=== PATIENT | female | born 1995 | race Caucasian/White ===

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

== ENCOUNTER 2019-08-03 21:53 | Emergency (ER) | payer OTHER ==
[~2019-08-03] VITALS: Ht 154.9 cm; Wt 55.3 kg
--- NOTE | 2019-08-03 22:15 | NUR ---
PT SENT TO L&D BED #2. S/W MARIAM. Addendum: 08/03/19 at 2216 by RENETTA PT S/O ABD CRAMPING AND LOW BACK PAIN X1700.
[2019-08-03] MEDS ORDERED: PREN-371 PO (23:24)
[2019-08-03] MEDS ORDERED: FERR-252 PO (23:24)
[2019-08-03 23:29] VITALS: BP 111/77
--- NOTE | 2019-08-03 23:50 | NUR ---
BIB WHEELCHAIR BY L&D STAFF TO ER BED 4
[2019-08-03 23:52] VITALS: BP 114/78
--- NOTE | 2019-08-04 00:11 | NUR ---
SHE WAS BROUGHT TO L & D WITH C/O LOWER ABD AND BACK PAIN, NO VAG BLEEDING SHE WAS SEEN AND EXAMINED IN L & D AND WAS CLEARED, BUT SOB THAT STARTED TODAY WHILE LYING DOWN, DENIES SOB AT THIS TIME, PUT ON BED # 4 VIA WHEELCHAIR.SHES 38 WEEKS , LMP NOVEMBER 22 STATES LOWER BL PELVIC PAIN AND MID LOWER BACK PAIN INTERMITTENT X TODAY. STATES N/V/D TODAY [id number] Addendum: 08/04/19 at 0018 by TITO DENIES PMH
--- NOTE | 2019-08-04 00:15 | NUR ---
RECEIVED REPORT FROM KERI PIERCE, BACK FROM BREAK
--- NOTE | 2019-08-04 00:27 | NUR ---
Carlota wilkins in [facility] - 08/04/19 at 0030 by MEDJJ PATIENT RESTING WITH EYES CLOSED, BREATHING EVEN AND UNLABORED
--- NOTE | 2019-08-04 00:27 | NUR ---
PATIENT ALERT AND ORIENTED, BREATHING EVEN AND UNLABORED
[2019-08-04 00:47] VITALS: BP 111/68
--- NOTE | 2019-08-04 00:47 | NUR ---
Patient discharged with v/s stable. Written and verbal after care instructions ABOUT SHORTNESS OF BREATHE given and explained. Patient verbalized understanding. Ambulatory with steady gait. All questions addressed prior to discharge. Advised to follow up with PMD AND ENTRY LEVEL STAFF ACCOUNTANT DOCTOR
== END 2019-08-04 00:47 | disposition home or self-care (01) ==
LOC: MED 21:53 → UNDOADMIN 22:15 → MLD 22:15 → MED 08-04 00:47
DX: O26.892 Other specified pregnancy related conditions, second trimester (principal); R06.02 Shortness of breath; R10.30 Lower abdominal pain, unspecified; M54.9 Dorsalgia, unspecified; Z3A.36 36 weeks gestation of pregnancy; Z79.899 Other long term (current) drug therapy
CPT/HCPCS: 81000; 99283

== ENCOUNTER 2019-08-08 03:00 | Inpatient (IN) | payer OTHER ==
[~2019-08-08] VITALS: Ht 152.4 cm; Wt 55.3 kg
[~2019-08-08 03:00] MED LIST changes: -BRE5 PO; +FERR-252 PO; -FERR325E14 PO; +PREN-371 PO; -PRENATAL; -[UNRECOGNIZED DRUG - OTHER]
[2019-08-08] MEDS ORDERED: LACTATED RINGERS 1,000 ML IV SCH (04:05)
[2019-08-08] MEDS ORDERED: AMPICILLIN 2,000 MG in NACL 0.9% 100 ML IV SCH (04:05)
[2019-08-08] MEDS ORDERED: AMPICILLIN 2,000 MG VIAL ONE (04:29)
[2019-08-08 04:41] LABS: BASOPHILS % (AUTO) 0.3 % (0.0-2.0); EOSINOPHILS % (AUTO) 0.6 % (0.0-4.0); HEMATOCRIT 30.4 % (36-48); HEMOGLOBIN 10.1 g/dL (12.0-16.0); LYMPHOCYTES # (AUTO) 2.3 K/uL (2.5-16.5); LYMPHOCYTES % (AUTO) 28.8 % (20.5-51.1); MEAN CORPUSCULAR HEMOGLOBIN 31 pg (27-31); MEAN CORPUSCULAR HGB CONC 33 g/dL (33-37); MEAN CORPUSCULAR VOLUME 94.8 fL (80-94); MONOCYTES # (AUTO) 0.7 K/uL (0.8-1.0); MONOCYTES % (AUTO) 8.4 % (1.7-9.3); NEUTROPHILS # (AUTO) 4.9 K/uL (1.8-7.7); NEUTROPHILS % (AUTO) 61.9 % (42.2-75.2); PLATELET COUNT (AUTO) 267 K/uL (140-450); RED BLOOD CELL COUNT(AUTO) 3.21 MIL/uL (4.20-5.40); RED CELL DISTRIBUTION WIDTH 14.3 % (11.6-13.7); WHITE BLOOD COUNT (AUTO) 7.9 K/uL (4.8-10.8)
[2019-08-08 04:51] LABS: APPEARANCE,URINE SL CLOUDY (CLEAR); BILIRUBIN,URINE NEGATIVE (NEGATIVE); BLOOD, URINE 3+ (NEGATIVE); COLOR,URINE YELLOW (YELLOW); LEUKOCYTE ESTERASE ,URINE 1+ (NEGATIVE); NITRITE, URINE NEGATIVE (NEGATIVE); PH,URINE 7.5 (5.0-9.0); UGLUCOSE NEGATIVE (NEGATIVE)
[2019-08-08 04:57] LABS: BARBITURATE, URINE NEG. ng/ml (NEG <=200); BENZODIAZEPINE, URINE NEG. ng/mL (NEG <=200); CANNABINOID, URINE NEG. ng/mL (NEG <=50); COCAINE, URINE NEG. ng/mL (NEG <=300); OPIATE, URINE NEG. ng/mL (NEG <=2000); PHENCYCLIDINE SCREEN,URINE NEG. ng/mL (NEG <=25)
[2019-08-08 05:26] LABS: RBC,URINE TOO NUMEROUS TO COUN /HPF (0-5); WBC,URINE TOO MANY TO COUNT /HPF (0-5)
[2019-08-08] MEDS ORDERED: OXYTOCIN 20 UNITS in LACTATED RINGERS 1,000 ML IV SCH (06:35)
[2019-08-08] MEDS ORDERED: OXYTOCIN 20 UNITS/LR PREMIX 1,000 ML IV ONE (06:43)
[2019-08-08 07:20] LABS: ANION GAP 12.2 (8-16); CARBON DIOXIDE 23.6 mmol/L (21-32); CREATININE 0.4 mg/dL (0.6-1.3); POTASSIUM 3.8 mmol/L (3.5-5.1)
[2019-08-08 07:26] LABS: ALBUMIN 2.6 g/dL (3.4-5.0); TOTAL BILIRUBIN 0.3 mg/dL (0.0-1.0)
[2019-08-08] MEDS ORDERED: PROMETHAZINE 25 MG/ML VIAL IVP PRN (07:35)
[2019-08-08] MEDS ORDERED: METHYLERGONOVINE 0.2 MG/ML AMP IM PRN ×2 (07:35→19:45)
[2019-08-08] MEDS ORDERED: CARBOPROST 250 MCG/ML AMP IM PRN (07:35)
[2019-08-08] MEDS ORDERED: NALBUPHINE 10 MG/ML AMP ONE (07:36)
[2019-08-08] MEDS: NALBUPHINE 10 MG/ML AMP IVP PRN ×2 (07:40→10:08)
[2019-08-08] MEDS ORDERED: AMPICILLIN 1,000 MG in NACL 0.9% 50 ML IV SCH (08:00)
--- NOTE | 2019-08-08 08:15 | NUR ---
PATIENT HAS BEEN SCREENED AND CATEGORIZED LOW NUTRITION RISK. PATIENT WILL BE SEEN WITHIN 7 DAYS OF ADMISSION. 08/14/[address]
[2019-08-08] MEDS ORDERED: AMPICILLIN 1,000 MG VIAL ONE (09:37)
[2019-08-08] MEDS ORDERED: EPIDURAL KEYS MC ONE (10:27)
[2019-08-08] MEDS ORDERED: ROPIVACAINE 0.2%/NS PREMIX 100 ML EPI ONE (11:09)
[2019-08-08] MEDS ORDERED: ROPIVACAINE 0.2%/NS PREMIX 100 ML EPI SCH (12:00)
[2019-08-08] MEDS ORDERED: HYDROcodone/APAP 5/325 MG 1 TAB TAB PO PRN (19:45)
[2019-08-08] MEDS ORDERED: TEMAZEPAM 15 MG CAP PO PRN (19:45)
[2019-08-08] MEDS ORDERED: MEASLES, MUMPS, AND RUBELLA 1 VIAL SQVAC PRN (19:45)
[2019-08-08] MEDS ORDERED: METHYLERGONOVINE 0.2 MG TAB PO PRN (19:45)
[2019-08-08] MEDS ORDERED: OXYTOCIN 10 UNITS/ML VIAL IM PRN ×2 (19:45→19:50)
[2019-08-08] MEDS ORDERED: BISACODYL 5 MG TABEC PO SCH (21:00)
[2019-08-08] MEDS: oxyCODONE/APAP 5/325 MG 1 TAB TAB PO PRN (21:17)
[2019-08-09 06:26] LABS: HEMATOCRIT 25.8 % (36-48); HEMOGLOBIN 8.6 g/dL (12.0-16.0)
[2019-08-09] MEDS: oxyCODONE/APAP 5/325 MG 1 TAB TAB PO PRN ×2 (09:39→19:50)
[2019-08-09] MEDS: FERROUS SULFATE 325 MG TABEC PO SCH (17:30)
[2019-08-09] MEDS: DOCUSATE SODIUM 100 MG GELCAP PO SCH (17:30)
[2019-08-09 18:10] LABS: BILIRUBIN,URINE NEGATIVE (NEGATIVE); BLOOD, URINE 3+ (NEGATIVE); COLOR,URINE YELLOW (YELLOW); LEUKOCYTE ESTERASE ,URINE 1+ (NEGATIVE); NITRITE, URINE NEGATIVE (NEGATIVE); PH,URINE 7.5 (5.0-9.0); UGLUCOSE NEGATIVE (NEGATIVE)
[2019-08-09 18:17] LABS: APPEARANCE,URINE HAZY (CLEAR)
[2019-08-09 18:25] LABS: RBC,URINE TOO NUMEROUS TO COUN /HPF (0-5); WBC,URINE 0-5 /HPF (0-5); YEAST,URINE None Seen /HPF (None Seen)
[2019-08-09] MEDS ORDERED: cefTRIAXone 1,000 MG VIAL ONE (20:04)
[2019-08-10 05:55] LABS: HEMATOCRIT 29.2 % (36-48); HEMOGLOBIN 9.5 g/dL (12.0-16.0)
[2019-08-10] MEDS: FERROUS SULFATE 325 MG TABEC PO SCH (08:32)
[2019-08-10] MEDS: DOCUSATE SODIUM 100 MG GELCAP PO SCH (08:32)
[2019-08-10 12:38] LABS: BASOPHILS # (AUTO) 0.1 K/uL (0.00-0.22); BASOPHILS % (AUTO) 0.8 % (0.0-2.0); EOSINOPHILS # (AUTO) 0.2 K/uL (0-0.4); EOSINOPHILS % (AUTO) 1.7 % (0.0-4.0); HEMATOCRIT 29.5 % (36-48); HEMOGLOBIN 9.5 g/dL (12.0-16.0); LYMPHOCYTES # (AUTO) 2.9 K/uL (2.5-16.5); LYMPHOCYTES % (AUTO) 31.8 % (20.5-51.1); MEAN CORPUSCULAR HEMOGLOBIN 32 pg (27-31); MEAN CORPUSCULAR HGB CONC 32 g/dL (33-37); MEAN CORPUSCULAR VOLUME 97.6 fL (80-94); MONOCYTES # (AUTO) 0.7 K/uL (0.8-1.0); NEUTROPHILS # (AUTO) 5.2 K/uL (1.8-7.7); NEUTROPHILS % (AUTO) 57.7 % (42.2-75.2); PLATELET COUNT (AUTO) 262 K/uL (140-450); RED BLOOD CELL COUNT(AUTO) 3.03 MIL/uL (4.20-5.40)
== END 2019-08-10 13:30 | disposition home or self-care (01) | DRG 560 ==
LOC: MLD 03:00 → OBSVTOIN 04:16 → MFCC 22:00
PROVIDERS: ADMIT Obstetrics & Gynecology; ATTEND Obstetrics & Gynecology
PROC: 10E0XZZ Delivery of Products of Conception, External Approach (ICD-10-PCS; principal; 2019-08-08)
PROC: 3E0R3BZ Introduction of Anesthetic Agent into Spinal Canal, Percutaneous Approach (ICD-10-PCS; 2019-08-08)
PROC: 00HU33Z Insertion of Infusion Device into Spinal Canal, Percutaneous Approach (ICD-10-PCS; 2019-08-08)
DX: O69.81X0 Labor and delivery complicated by cord around neck, without compression, not applicable or unspecified (principal); Z37.0 Single live birth; Z3A.36 36 weeks gestation of pregnancy
CPT/HCPCS: 36415; 51702; 59409; 80053; 80305; 81001; 83036; 85018; 85025; 86592; 86762; 86886; 86900; 86901; 87086; 87340; 87653-90; 90715; G0378; J0290; J0696; J2300; J2550; J2590; J2795; J7060; J7120

== ENCOUNTER 2019-08-17 04:40 | Emergency (ER) | payer OTHER ==
[~2019-08-17] VITALS: Ht 154.9 cm; Wt 49.9 kg
[2019-08-17 04:40] VITALS: BP 122/85
--- NOTE | 2019-08-17 04:40 | NUR ---
to bed # 07 ambulatory
--- NOTE | 2019-08-17 05:00 | NUR ---
24 YEAR OLD FEMALE COMPLAINS OF LOWER ABDOMINAL PAIN THAT RADIATES TO RIGHT FLANK AREA X 5 DAYS. PATIENT STATES THAT PAIN HAS BEEN ON/OFF BUT INCREASING IN INTENSITY. PATIENT COMPLAINS OF CONSTIPATION X 2 DAYS. BOWEL SOUNDS ACTIVEX4, SLIGHT DISTENTION, TENDER IN LOWER QUADRANTS. PATIENT ALSO COMPLAINS OF BUMP WITH REDNESS BELOW RIGHT BREAST X 2 DAYS AND COMPLAINS OF PAIN FROM IT. PATIENT AOX4, BREATHING EVEN AND UNLABORED, SKIN WARM AND DRY. BED IN LOWEST POSITION, LOCKED, BED RAIL UPX1. PMH - DENIES MEDS - NONE ALLERGIES - NKA
[2019-08-17] MEDS ORDERED: cefTRIAXone 1,000 MG in LIDOCAINE MPF 1% 2.1 ML IM ONE (05:25)
[2019-08-17] MEDS ORDERED: KETOROLAC 60 MG/2 ML VIAL IM ONE (05:30)
[2019-08-17] MEDS ORDERED: LIDOCAINE MPF 1% 5 ML ONE (05:37)
[2019-08-17] MEDS ORDERED: cefTRIAXone 1,000 MG VIAL ONE (05:37)
--- NOTE | 2019-08-17 07:26 | NUR ---
REPORT GIVEN TO JOELLE PIERCE, TRANSFER OF CARE AT THIS TIME
--- NOTE | 2019-08-17 08:25 | NUR ---
Patient discharged with v/s stable. Written and verbal after care instructions given and explained. Patient alert, oriented and verbalized understanding of instructions. with . All questions addressed prior to discharge. ID band removed. Patient advised to follow up with PMD. Rx of Keflex given. Patient educated on indication of medication including possible reaction and side effects. Opportunity to ask questions provided and answered.
[2019-08-17 08:26] VITALS: BP 128/64
== END 2019-08-17 08:25 | disposition home or self-care (01) ==
LOC: MED 04:40
DX: N39.0 Urinary tract infection, site not specified (principal); Z79.899 Other long term (current) drug therapy
CPT/HCPCS: 81002; 96372; 99283; J0696; J1885; J2001

== ENCOUNTER 2021-01-22 17:50 | Emergency (ER) | payer OTHER ==
[~2021-01-22] VITALS: Ht 154.9 cm; Wt 47.2 kg
[2021-01-22 18:00] VITALS: BP 110/67
[2021-01-22] MEDS ORDERED: ALUMINUM HYD/MAG/SIMETHICONE 30 ML, DICYCLOMINE HCL LIQUID 20 MG, LIDOCAINE VISCOUS 2% ... PO ONE ×3 (18:20)
[2021-01-22] MEDS ORDERED: ONDANSETRON 4 MG/2 ML VIAL IVP ONE (18:20)
--- NOTE | 2021-01-22 18:51 | NUR ---
PT AMB TO BED 7
[2021-01-22 18:56] LABS: BASOPHILS # (AUTO) 0.1 K/uL (0.00-0.22); BASOPHILS % (AUTO) 0.9 % (0.0-2.0); EOSINOPHILS % (AUTO) 0.6 % (0.0-4.0); HEMATOCRIT 44.1 % (36-48); HEMOGLOBIN 14.9 g/dL (12.0-16.0); LYMPHOCYTES # (AUTO) 1.5 K/uL (2.5-16.5); LYMPHOCYTES % (AUTO) 21.9 % (20.5-51.1); MEAN CORPUSCULAR HEMOGLOBIN 32 pg (27-31); MEAN CORPUSCULAR HGB CONC 34 g/dL (33-37); MEAN CORPUSCULAR VOLUME 95.2 fL (80-94); MONOCYTES # (AUTO) 0.9 K/uL (0.8-1.0); MONOCYTES % (AUTO) 13.7 % (1.7-9.3); NEUTROPHILS # (AUTO) 4.4 K/uL (1.8-7.7); NEUTROPHILS % (AUTO) 62.9 % (42.2-75.2); PLATELET COUNT (AUTO) 300 K/uL (140-450); RED BLOOD CELL COUNT(AUTO) 4.63 MIL/uL (4.20-5.40); RED CELL DISTRIBUTION WIDTH 13.1 % (11.6-13.7); WHITE BLOOD COUNT (AUTO) 6.9 K/uL (4.8-10.8)
--- NOTE | 2021-01-22 19:02 | NUR ---
Urine sample attempt.
[2021-01-22 19:14] LABS: ALBUMIN 4.5 g/dL (3.4-5.0); ANION GAP 14.6 (8-16); CARBON DIOXIDE 23.3 mmol/L (21-32); CREATININE 0.6 mg/dL (0.6-1.3); TOTAL BILIRUBIN 0.4 mg/dL (0.0-1.0)
[2021-01-22 19:16] LABS: POTASSIUM 2.9 mmol/L (3.5-5.1)
[2021-01-22] MEDS ORDERED: DICYCLOMINE HCL LIQUID 10 MG/5 ML UDC ONE (19:24)
[2021-01-22] MEDS: NACL 0.9% 1,000 ML IV SCH (19:30)
[2021-01-22] MEDS ORDERED: ALUMINUM HYD/MAG/SIMETHICONE 30 ML UDC ONE (19:37)
--- NOTE | 2021-01-22 19:43 | NUR ---
SEE COMPLETE ASSESSMENT.
[2021-01-22] MEDS ORDERED: KCL 20 MEQ/WATER INJ PREMIX 200 ML IV ONE (19:50)
[2021-01-22] MEDS ORDERED: POTASSIUM CHLORIDE 20% 40 MEQ/15 ML UDC PO ONE (19:50)
--- NOTE | 2021-01-22 19:57 | NUR ---
ULTRASOUND AT BEDSIDE.
[2021-01-22 20:39] VITALS: BP 88/58
--- NOTE | 2021-01-22 21:03 | NUR ---
PT AMBULATED TO RESTROOM WITH STEADY AND EVEN GAIT.
[2021-01-22] MEDS ORDERED: ONDA-24 SL (21:56)
[2021-01-22] MEDS ORDERED: FAMO-90 PO (21:56)
[2021-01-22] MEDS ORDERED: CIPR500T4 PO (21:56)
--- NOTE | 2021-01-22 22:18 | NUR ---
d/c with VSS. d/c education given. opportunity to ask questions given and answered. rx of zofran, cipro, and pepcid given. IV site removed, bleeding controlled with sterile gauze and reinfoced with tape.
== END 2021-01-22 22:17 | disposition home or self-care (01) ==
LOC: MED 17:50
DX: R11.2 Nausea with vomiting, unspecified (principal); R19.7 Diarrhea, unspecified; R79.89 Other specified abnormal findings of blood chemistry; E87.6 Hypokalemia; Z79.899 Other long term (current) drug therapy
CPT/HCPCS: 36415; 76705; 80053; 81002; 81025; 83690; 85025; 96361; 96365; 96375; 99284; J2405; J3480; J7030

== ENCOUNTER 2021-02-12 15:05 | Emergency (ER) | payer OTHER ==
[~2021-02-12] VITALS: Ht 154.9 cm; Wt 53.5 kg
[~2021-02-12 15:05] MED LIST changes: +CIPR500T4 PO; +FAMO-90 PO; +ONDA-24 SL
[2021-02-12 15:11] VITALS: BP 126/66
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
[2021-02-12] MEDS ORDERED: MORPHINE SULFATE 2 MG/ML SYR IVP ONE (15:40)
[2021-02-12] MEDS ORDERED: NACL 0.9% 1,000 ML IV SCH (15:40)
[2021-02-12] MEDS ORDERED: ONDANSETRON 4 MG/2 ML VIAL IVP ONE (15:40)
--- NOTE | 2021-02-12 16:05 | NUR ---
20G IV EST TO L AC, BLOOD SAMPLE COLLECTED VIA IV, WALKED TO LAB.
[2021-02-12 16:17] LABS: BASOPHILS % (AUTO) 0.6 % (0.0-2.0); EOSINOPHILS # (AUTO) 0.2 K/uL (0-0.4); EOSINOPHILS % (AUTO) 2.9 % (0.0-4.0); HEMATOCRIT 36.8 % (36-48); HEMOGLOBIN 12.4 g/dL (12.0-16.0); LYMPHOCYTES % (AUTO) 33.1 % (20.5-51.1); MEAN CORPUSCULAR HEMOGLOBIN 33 pg (27-31); MEAN CORPUSCULAR HGB CONC 34 g/dL (33-37); MEAN CORPUSCULAR VOLUME 96.6 fL (80-94); MONOCYTES # (AUTO) 0.7 K/uL (0.8-1.0); MONOCYTES % (AUTO) 11.6 % (1.7-9.3); NEUTROPHILS # (AUTO) 3.1 K/uL (1.8-7.7); NEUTROPHILS % (AUTO) 51.8 % (42.2-75.2); PLATELET COUNT (AUTO) 326 K/uL (140-450); RED BLOOD CELL COUNT(AUTO) 3.81 MIL/uL (4.20-5.40); RED CELL DISTRIBUTION WIDTH 13.4 % (11.6-13.7); WHITE BLOOD COUNT (AUTO) 5.9 K/uL (4.8-10.8)
[2021-02-12 16:20] LABS: APPEARANCE,URINE CLEAR (CLEAR); BILIRUBIN,URINE NEGATIVE (NEGATIVE); BLOOD, URINE TRACE-I (NEGATIVE); COLOR,URINE YELLOW (YELLOW); LEUKOCYTE ESTERASE ,URINE NEGATIVE (NEGATIVE); NITRITE, URINE NEGATIVE (NEGATIVE); UGLUCOSE NEGATIVE (NEGATIVE)
[2021-02-12 16:35] LABS: RBC,URINE 0-5 /HPF (0-5)
[2021-02-12 16:43] LABS: ALBUMIN 4.2 g/dL (3.4-5.0); ANION GAP 9.6 (8-16); CARBON DIOXIDE 26.1 mmol/L (21-32); CREATININE 0.5 mg/dL (0.6-1.3); POTASSIUM 3.7 mmol/L (3.5-5.1); TOTAL BILIRUBIN 0.3 mg/dL (0.0-1.0)
--- NOTE | 2021-02-12 17:04 | NUR ---
PT ALERT AND AWAKE, BREATHING EVEN AND UNLABORED. NO DISTRESS NOTED. ALL NEEDS MET AT THIS TIME WILL CONTINUE TO MONITOR
[2021-02-12] MEDS ORDERED: PANTOPRAZOLE 40 MG INJ VIAL IVP ONE (17:10)
[2021-02-12] MEDS ORDERED: CEPH-588 PO (17:12)
[2021-02-12] MEDS ORDERED: PANT40EC PO (17:12)
[2021-02-12] MEDS ORDERED: cefTRIAXone 1,000 MG VIAL ONE (17:25)
--- NOTE | 2021-02-12 17:58 | NUR ---
d/c with VSS. d/c education given. opportunity to ask questions given and answered. rx of keflex and protonix given. IV site removed, bleeding controlled with sterile gauze and reinforced with tape.
== END 2021-02-12 17:58 | disposition home or self-care (01) ==
LOC: MED 15:05
DX: K80.20 Calculus of gallbladder without cholecystitis without obstruction (principal); N39.0 Urinary tract infection, site not specified; R14.0 Abdominal distension (gaseous); Z79.899 Other long term (current) drug therapy
CPT/HCPCS: 36415; 76705; 80053; 81001; 81025; 83690; 84703; 85025; 87086; 96361; 96365; 96375; 99284; C9113; J0696; J2270; J2405; J7030

== ENCOUNTER 2021-11-18 04:03 | Emergency (ER) | payer OTHER ==
[~2021-11-18] VITALS: Ht 152.4 cm; Wt 57.6 kg
[~2021-11-18 04:03] MED LIST changes: +CEPH-588 PO; +ONDA-188 SL; -ONDA-24 SL; +PANT40EC PO
[2021-11-18 04:07] VITALS: BP 123/85
--- NOTE | 2021-11-18 04:15 | NUR ---
PT AMBULATED TO BED #8
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
[2021-11-18] MEDS ORDERED: CEPH-588 PO (04:50)
[2021-11-18] MEDS ORDERED: PHEN-1877 PO (04:51)
[2021-11-18] MEDS ORDERED: IBUPROFEN 800 MG TAB PO ONE (04:55)
[2021-11-18] MEDS ORDERED: AMOXICILLIN 500 MG CAP PO ONE (04:55)
[2021-11-18 05:10] VITALS: BP 123/85
--- NOTE | 2021-11-18 05:10 | NUR ---
Patient discharged with v/s stable. Written and verbal after care instructions given and explained. Patient alert, oriented and verbalized understanding of instructions. Carried with steady gait. All questions addressed prior to discharge. ID band removed. Patient advised to follow up with PMD. Rx of KEFLEX , PYRIDIUM given. Opportunity to ask questions provided and answered.
--- NOTE | 2021-11-18 05:42 | NUR ---
The patient's care was reviewed and supervised by Maggy Singh RN.
== END 2021-11-18 05:10 | disposition home or self-care (01) ==
LOC: MED 04:03
DX: R10.30 Lower abdominal pain, unspecified (principal); Z79.899 Other long term (current) drug therapy
CPT/HCPCS: 81002; 81025; 99283

== ENCOUNTER 2022-03-31 23:37 | Emergency (ER) | payer OTHER ==
[~2022-03-31] VITALS: Ht 154.9 cm; Wt 59.0 kg
[~2022-03-31 23:37] MED LIST changes: +PHEN-1877 PO
[2022-03-31 23:47] VITALS: BP 117/66
--- NOTE | 2022-03-31 23:54 | NUR ---
Patient ambulated to bed 3.
--- NOTE | 2022-04-01 00:50 | NUR ---
Dr. Bowie at bedside assessing patient.
[2022-04-01] MEDS ORDERED: KETOROLAC 30 MG/ML VIAL IM ONE (00:55)
[2022-04-01] MEDS ORDERED: LORazepam 1 MG TAB PO ONE (02:35)
[2022-04-01 02:44] LABS: BASOPHILS % (AUTO) 0.4 % (0.0-2.0); EOSINOPHILS # (AUTO) 0.3 K/uL (0-0.4); EOSINOPHILS % (AUTO) 3.4 % (0.0-4.0); HEMATOCRIT 34.1 % (36-48); HEMOGLOBIN 11.4 g/dL (12.0-16.0); LYMPHOCYTES # (AUTO) 3.5 K/uL (2.5-16.5); LYMPHOCYTES % (AUTO) 35.3 % (20.5-51.1); MEAN CORPUSCULAR HEMOGLOBIN 33 pg (27-31); MEAN CORPUSCULAR HGB CONC 33 g/dL (33-37); MEAN CORPUSCULAR VOLUME 97.9 fL (80-94); MONOCYTES % (AUTO) 9.7 % (1.7-9.3); NEUTROPHILS % (AUTO) 51.2 % (42.2-75.2); PLATELET COUNT (AUTO) 333 K/uL (140-450); RED BLOOD CELL COUNT(AUTO) 3.49 MIL/uL (4.20-5.40); RED CELL DISTRIBUTION WIDTH 13.6 % (11.6-13.7); WHITE BLOOD COUNT (AUTO) 9.8 K/uL (4.8-10.8)
[2022-04-01 02:59] LABS: ANION GAP 7.9 (8-16); CARBON DIOXIDE 29.7 mmol/L (21-32); CREATININE 0.7 mg/dL (0.6-1.3); POTASSIUM 3.6 mmol/L (3.5-5.1)
--- NOTE | 2022-04-01 03:00 | NUR ---
Patient resting comfortably in bed, no c/o pain or s/s of discomfort.
[2022-04-01] MEDS ORDERED: NAPR-54 PO (03:48)
[2022-04-01 03:55] VITALS: BP 111/67
== END 2022-04-01 04:07 | disposition home or self-care (01) ==
LOC: MED 23:37
DX: R07.9 Chest pain, unspecified (principal); R06.02 Shortness of breath; Z79.899 Other long term (current) drug therapy
CPT/HCPCS: 36415; 71045; 80048; 81025; 84484; 85025; 85379; 93005; 96372; 99285; J1885; Q0092

== ENCOUNTER 2022-07-26 04:58 | Emergency (ER) | payer OTHER ==
[~2022-07-26] VITALS: Ht 152.4 cm; Wt 59.0 kg
[~2022-07-26 04:58] MED LIST changes: +NAPR-54 PO
[2022-07-26 05:11] VITALS: BP 120/75
--- NOTE | 2022-07-26 05:14 | NUR ---
TO BED AMBULATORY
--- NOTE | 2022-07-26 05:20 | NUR ---
RT EAR PAIN, FOR 3 DAYS, NASAL CONGESTION
[2022-07-26] MEDS ORDERED: CIPR7.5S OT (05:38)
[2022-07-26] MEDS ORDERED: AMOX500C25 PO (05:38)
[2022-07-26] MEDS ORDERED: NAPR-54 PO (05:38)
[2022-07-26 05:50] VITALS: BP 120/75
--- NOTE | 2022-07-26 05:50 | NUR ---
Patient discharged with v/s stable. Written and verbal after care instructions given and explained. Patient alert, oriented and verbalized understanding of instructions. Ambulatory with steady gait. All questions addressed prior to discharge. ID band removed. Patient advised to follow up with PMD. Rx of AMOXICILLIN, CIPRO OTIC, NAPROSYN given. Patient educated on indication of medication including possible reaction and side effects. Opportunity to ask questions provided and answered.
== END 2022-07-26 05:50 | disposition home or self-care (01) ==
LOC: MED 04:58
DX: H60.91 Unspecified otitis externa, right ear (principal); J06.9 Acute upper respiratory infection, unspecified; Z79.899 Other long term (current) drug therapy
CPT/HCPCS: 99283

== ENCOUNTER 2022-09-21 21:00 | Emergency (ER) | payer OTHER ==
[~2022-09-21] VITALS: Ht 154.9 cm; Wt 61.7 kg
[~2022-09-21 21:00] MED LIST changes: +AMOX500C25 PO; +CIPR7.5S OT
[2022-09-21 21:06] VITALS: BP 119/74
[2022-09-21] MEDS ORDERED: IBUPROFEN 600 MG TAB PO ONE (21:15)
--- NOTE | 2022-09-21 21:35 | NUR ---
Dr. Mccormick examining patient.
--- NOTE | 2022-09-21 21:47 | NUR ---
Patient returned back from X-ray.
[2022-09-21] MEDS ORDERED: IBUP-2213 PO (22:07)
== END 2022-09-21 22:15 | disposition home or self-care (01) ==
LOC: MED 21:00
DX: S99.921A Unspecified injury of right foot, initial encounter (principal); Z79.899 Other long term (current) drug therapy; X58.XXXA Exposure to other specified factors, initial encounter; Y93.89 Activity, other specified; Y92.89 Other specified places as the place of occurrence of the external cause; Y99.8 Other external cause status
CPT/HCPCS: 73660; 99283

== ENCOUNTER 2022-10-13 15:10 | Emergency (ER) | payer OTHER ==
[~2022-10-13] VITALS: Ht 152.4 cm; Wt 61.7 kg
[~2022-10-13 15:10] MED LIST changes: +IBUP-2213 PO
[2022-10-13 15:13] VITALS: BP 117/70
--- NOTE | 2022-10-13 15:19 | NUR ---
bibs for both ear pain 5/10 x 3 days. reports drainage. no cough, fever, chills, dizziness, nausea. aao x4. resp even and nonlabored. vss. ambualtory
[2022-10-13] MEDS ORDERED: OFLO10SO16 BOTH EARS (15:58)
[2022-10-13] MEDS ORDERED: IBUP-2213 PO (15:58)
[2022-10-13 16:10] VITALS: BP 112/76
== END 2022-10-13 16:10 | disposition home or self-care (01) ==
LOC: MED 15:10
DX: H60.93 Unspecified otitis externa, bilateral (principal); Z79.899 Other long term (current) drug therapy
CPT/HCPCS: 99283

== ENCOUNTER 2023-04-12 14:13 | Emergency (ER) | payer OTHER ==
[~2023-04-12] VITALS: Ht 154.9 cm; Wt 61.7 kg
[~2023-04-12 14:13] MED LIST changes: +OFLO10SO16 BOTH EARS
[2023-04-12 14:36] VITALS: BP 132/59; PULSE 97; RESP 20; TEMP 97.8; O2SAT 96
[2023-04-12] MEDS ORDERED: IBUP-2213 PO (15:04)
[2023-04-12] MEDS ORDERED: CIPR7.5S OT (15:04)
== END 2023-04-12 15:28 | disposition home or self-care (01) ==
LOC: MED 14:13
DX: H60.92 Unspecified otitis externa, left ear (principal); Z79.899 Other long term (current) drug therapy
CPT/HCPCS: 99283

== ENCOUNTER 2023-06-05 21:49 | Emergency (ER) | payer OTHER ==
[~2023-06-05] VITALS: Ht 154.9 cm; Wt 62.6 kg
[2023-06-05 21:59] VITALS: BP 117/52; PULSE 97; RESP 16; TEMP 98.2; O2SAT 100
[2023-06-05 22:15] VITALS: O2SAT 100
[2023-06-05 22:37] LABS: FLU A ANTIGEN negative (NEGATIVE); FLU B ANTIGEN NEGATIVE (NEGATIVE)
[2023-06-05] MEDS ORDERED: predniSONE 20 MG TAB PO ONE (22:45)
[2023-06-05] MEDS ORDERED: ACETAMIN/CODEINE 120/12MG-5ML 5 ML UDC PO ONE (22:45)
[2023-06-05 22:52] LABS: APPEARANCE,URINE HAZY (CLEAR); BILIRUBIN,URINE NEGATIVE (NEGATIVE); BLOOD, URINE TRACE-I (NEGATIVE); COLOR,URINE YELLOW (YELLOW); LEUKOCYTE ESTERASE ,URINE 1+ (NEGATIVE); NITRITE, URINE NEGATIVE (NEGATIVE); PROTEIN,URINE NEGATIVE (NEGATIVE); UGLUCOSE NEGATIVE (NEGATIVE); UROBILINOGEN,URINE 0.2 EU/dL (0.2 - 1)
[2023-06-05 23:10] LABS: BACTERIA,URINE 2+ /HPF (None Seen); RBC,URINE 0-5 /HPF (0-5); SQUAMOUS EPITHELIAL CELL,UR 20-50 /LPF (0-3 (FEW)); YEAST,URINE Moderate /HPF (None Seen)
[2023-06-05] MEDS ORDERED: CEPH-588 PO (23:39)
[2023-06-05] MEDS ORDERED: ROBAC PO (23:39)
[2023-06-05] MEDS ORDERED: PRED20TA5 PO (23:39)
== END 2023-06-05 23:54 | disposition home or self-care (01) ==
LOC: MED 21:49
DX: J20.9 Acute bronchitis, unspecified (principal); Z20.822 Contact with and (suspected) exposure to COVID-19; N39.0 Urinary tract infection, site not specified; Z79.899 Other long term (current) drug therapy
CPT/HCPCS: 71045; 81001; 81025; 87086; 87426; 87804; 99284; J7512; Q0092

== ENCOUNTER 2023-06-20 20:58 | Emergency (ER) | payer OTHER ==
[~2023-06-20] VITALS: Ht 154.9 cm; Wt 59.9 kg
[~2023-06-20 20:58] MED LIST changes: +PRED20TA5 PO; +ROBAC PO
[2023-06-20 21:00] VITALS: BP 104/73; PULSE 85; RESP 16; TEMP 97.7; O2SAT 98
[2023-06-20] MEDS ORDERED: IBUPROFEN 600 MG TAB PO ONE (22:40)
[2023-06-20] MEDS ORDERED: AMOX500C25 PO (22:48)
[2023-06-20 22:54] VITALS: O2SAT 98
== END 2023-06-20 23:00 | disposition home or self-care (01) ==
LOC: MED 20:58
DX: H66.92 Otitis media, unspecified, left ear (principal); Z79.899 Other long term (current) drug therapy; Z79.2 Long term (current) use of antibiotics; Z79.1 Long term (current) use of non-steroidal anti-inflammatories (NSAID)
CPT/HCPCS: 99283

== ENCOUNTER 2023-08-11 19:03 | Emergency (ER) | payer OTHER ==
[~2023-08-11] VITALS: Ht 154.9 cm; Wt 61.2 kg
[2023-08-11 19:24] VITALS: BP 103/69; PULSE 85; RESP 16; TEMP 98.2; O2SAT 97
[2023-08-11] MEDS ORDERED: FLUORESCEIN OPTH STRIP 1 MG ONE (19:37)
[2023-08-11] MEDS ORDERED: FLUORESCEIN OPTH STRIP 1 MG OP ONE (19:40)
[2023-08-11] MEDS ORDERED: ERYT5OIN58 OP (19:52)
== END 2023-08-11 20:05 | disposition home or self-care (01) ==
LOC: MED 19:03
DX: H01.001 Unspecified blepharitis right upper eyelid (principal); Z79.899 Other long term (current) drug therapy; Z79.2 Long term (current) use of antibiotics; Z79.1 Long term (current) use of non-steroidal anti-inflammatories (NSAID)
CPT/HCPCS: 99283

== ENCOUNTER 2023-08-19 15:46 | Emergency (ER) | payer OTHER ==
[~2023-08-19] VITALS: Ht 154.9 cm; Wt 60.1 kg
[~2023-08-19 15:46] MED LIST changes: +ERYT5OIN58 OP
[2023-08-19 15:54] VITALS: BP 102/67; PULSE 123; RESP 20; TEMP 98.9; O2SAT 99
[2023-08-19] MEDS ORDERED: NACL 0.9% 1,000 ML IV ONE (16:30)
[2023-08-19] MEDS ORDERED: ONDANSETRON 4 MG/2 ML VIAL IVP ONE (16:30)
[2023-08-19] MEDS ORDERED: ONDANSETRON 4 MG ODT PO ONE (16:50)
[2023-08-19] MEDS ORDERED: ONDA-188 SL (17:43)
[2023-08-19] MEDS ORDERED: IBUP-2213 PO (17:43)
[2023-08-19] MEDS ORDERED: IBUPROFEN 600 MG TAB PO ONE (17:45)
[2023-08-19 18:17] LABS: FLU A ANTIGEN negative (NEGATIVE); FLU B ANTIGEN NEGATIVE (NEGATIVE)
[2023-08-19] MEDS ORDERED: ACET-10509 PO (18:39)
[2023-08-19 18:41] VITALS: BP 102/67; PULSE 104; RESP 15; TEMP 98.9; O2SAT 97
== END 2023-08-19 18:41 | disposition home or self-care (01) ==
LOC: MED 15:46
DX: O99.611 Diseases of the digestive system complicating pregnancy, first trimester (principal); K52.9 Noninfective gastroenteritis and colitis, unspecified; Z20.822 Contact with and (suspected) exposure to COVID-19; Z3A.01 Less than 8 weeks gestation of pregnancy; Z79.899 Other long term (current) drug therapy; Z79.2 Long term (current) use of antibiotics; Z79.1 Long term (current) use of non-steroidal anti-inflammatories (NSAID)
CPT/HCPCS: 81025; 87426; 87804; 99283; Q0162